=== PATIENT | male | born 1955 | race Caucasian/White ===

== ENCOUNTER 2018-05-17 05:26 | Inpatient (IN) | payer OTHER ==
[2018-05-17] MEDS: VANCOMYCIN 1 GM 250 ML IVPB (06:04)
[2018-05-17] MEDS: LACTATED RINGER'S 1,000 ML IV* (06:04)
[2018-05-17] MEDS ORDERED: GELATIN SIZE 100 SPONGE (06:39)
[2018-05-17] MEDS ORDERED: THROMBIN 5000 UNIT VIAL ×2 (06:40→07:57)
[2018-05-17] MEDS ORDERED: CA CHLORIDE 10% 10 ML SYRINGE (06:40)
[2018-05-17] MEDS ORDERED: CEFAZOLIN 1 GM INJ (06:44)
[2018-05-17] MEDS ORDERED: SODIUM CL BACTERIOSTATIC 30 ML INJ (06:44)
[2018-05-17] MEDS ORDERED: SURGIFOAM POWDER 1 GM KIT ×4 (06:55→14:26)
[2018-05-17] MEDS ORDERED: D5W-0.45 NACL + KCL 20 MEQ 1,000 ML IV (06:58)
[2018-05-17] MEDS ORDERED: METOCLOPRAMIDE 10 MG INJ (06:58)
[2018-05-17] MEDS ORDERED: PROPOFOL 20 ML (06:58)
[2018-05-17] MEDS ORDERED: MIDAZOLAM 1 MG/ML 2 ML INJ (06:58)
[2018-05-17] MEDS ORDERED: BISACODYL 10 MG SUPP PR (07:00)
[2018-05-17] MEDS ORDERED: ONDANSETRON 4 MG INJ IV (07:00)
[2018-05-17] MEDS ORDERED: NALOXONE (0.4 MG/ML) INJ IV (07:00)
[2018-05-17] MEDS ORDERED: CARISOPRODOL 350 MG TAB PO (07:00)
[2018-05-17] MEDS ORDERED: CEPASTAT LOZENGE MT (07:00)
[2018-05-17] MEDS ORDERED: ACETAMINOPHEN 325 MG TAB PO (07:00)
[2018-05-17] MEDS ORDERED: ALBUMIN HUMAN 5% 250 ML INJ (07:00)
[2018-05-17] MEDS ORDERED: ZOLPIDEM 5 MG TAB PO (07:00)
[2018-05-17] MEDS ORDERED: DIPHENHYDRAMINE 50 MG INJ IV (07:00)
[2018-05-17] MEDS ORDERED: FENTAnyl 50 MCG/ML VIAL (07:04)
[2018-05-17] MEDS ORDERED: ACETAMINOPHEN 1000MG/100ML IV 200 ML (08:00)
[2018-05-17] MEDS ORDERED: EPHEDrine SULFATE 50 MG/5 ML SYG ×4 (08:00→13:47)
[2018-05-17] MEDS: BUPIVACAINE 0.25%/EPI (SDV) 30 ML INJ (08:16)
[2018-05-17] MEDS: DOCUSATE SODIUM 100 MG CAP PO ×2 (09:00→21:02)
[2018-05-17] MEDS ORDERED: PHENYLephrine (100 MCG/ML) 5ML SYG (09:09)
[2018-05-17] MEDS ORDERED: PHENYLephrine 10 MG INJ (09:19)
[2018-05-17] MEDS: CA CHLORIDE 10% 10 ML SYRINGE (09:23)
[2018-05-17] MEDS: THROMBIN 5000 UNIT VIAL ×5 (09:23→14:32)
[2018-05-17] MEDS: HEPARIN 1000 UNITS/ML 10 ML INJ (09:28)
[2018-05-17] MEDS: POLYMYXIN/BACITRACIN 1L IRRIG (09:31)
[2018-05-17] MEDS ORDERED: ROCURONIUM 50 MG INJ ×2 (13:00→13:47)
[2018-05-17] MEDS ORDERED: FUROSEMIDE 20 MG INJ (15:19)
[2018-05-17] MEDS ORDERED: BUPIVACAINE 0.25% (MPF) 30 ML INJ (15:31)
[2018-05-17] MEDS ORDERED: ACETAMINOPHEN 1000MG/100ML IV 100 ML IVPB (16:00)
[2018-05-17] MEDS: FENTAnyl 50 MCG/ML VIAL (16:23)
[2018-05-17] MEDS: BUPIVACAINE 0.25% (MPF) 30 ML INJ (16:23)
[2018-05-17] MEDS ORDERED: ONDANSETRON 4 MG INJ (16:28)
[2018-05-17] MEDS: VANCOMYCIN 1 GM (PMX) 250 ML IVPB (17:43)
[2018-05-17] MEDS: LISINOPRIL 20 MG TAB PO (18:00)
[2018-05-17] MEDS: traMADol 50 MG TAB PO (18:16)
[2018-05-17] MEDS: SOD CHLORIDE 0.9% 1,000 ML IV (18:23)
[2018-05-17] MEDS: [UNRECOGNIZED DRUG - OTHER] XX (18:30)
[2018-05-17] MEDS ORDERED: GLUCOSE GEL 15 GRAM TUBE PO ×2 (18:30)
[2018-05-17] MEDS ORDERED: GLUCAGON 1 MG INJ IM (18:30)
[2018-05-17] MEDS ORDERED: GLUCOSE GEL 15 GRAM TUBE BUCCAL (18:30)
[2018-05-17] MEDS ORDERED: DEXTROSE 50% 50 ML SYRINGE IV ×2 (18:30)
[2018-05-17] MEDS: HYDROmorphONE 0.5 MG/0.5 ML SYG IV (19:52)
[2018-05-17] MEDS ORDERED: NON-FORMULARY/PATIENT OWN MED (Carvedilol* 6.25 MG) PO (21:00)
[2018-05-17] MEDS: QUETIAPINE 25 MG TAB PO (21:02)
[2018-05-17] MEDS: EZETIMIBE 10 MG TAB PO (21:03)
[2018-05-17] MEDS: HYDROmorphONE 0.2 MG/ML PCA IV (22:01)
[2018-05-18] MEDS: [UNRECOGNIZED DRUG - OTHER] XX ×3 (02:30→11:31)
[2018-05-18] MEDS: ACCU-CHEK XX (02:38)
[2018-05-18] MEDS: VANCOMYCIN 1 GM (PMX) 250 ML IVPB (05:34)
[2018-05-18] MEDS: PANTOPRAZOLE 40 MG INJ IV (05:34)
[2018-05-18 05:37] LABS: ADD MAN DIFF? NO
[2018-05-18 05:44] LABS: BASOPHILS % 0.3 % (0.0-2.0); EOSINOPHILS % 0.1 % (0.0-7.0); HEMATOCRIT 31.5 % (42.0-52.0); HEMOGLOBIN 10.3 g/dl (14.0-18.0); LYMPHOCYTES # 2.2 10^3/ul (0.8-2.9); LYMPHOCYTES % 19.5 % (15.0-51.0); MEAN CORPUSCULAR HEMOGLOBIN 27.8 pg (29.0-33.0); MEAN CORPUSCULAR HGB CONC 32.7 g/dl (32.0-37.0); MEAN CORPUSCULAR VOLUME 84.9 fl (82.0-101.0); MONOCYTE # 1.3 10^3/ul (0.3-0.9); MONOCYTES % 11.4 % (0.0-11.0); NEUTROPHIL # 7.6 10^3/ul (1.6-7.5); NEUTROPHILS % 68.3 % (39.0-77.0); PLATELET COUNT 157 10^3/UL (140-415); RED BLOOD COUNT 3.71 10^6/ul (4.70-6.10)
[2018-05-18 05:44] LABS: WHITE BLOOD COUNT 11.1 10^3/ul (4.8-10.8)
[2018-05-18 06:23] LABS: ANION GAP 11 (8-16); BLOOD UREA NITROGEN 27 mg/dl (7-20); CARBON DIOXIDE 22 mmol/L (21-31); CHLORIDE 104 mmol/L (97-110); GLUCOSE 164 mg/dl (70-220); POTASSIUM 4.7 mmol/L (3.5-5.1); SODIUM 132 mmol/L (135-144)
[2018-05-18] MEDS: SOD CHLORIDE 0.9% 1,000 ML IV ×2 (06:30→08:18)
[2018-05-18] MEDS: INSULIN ASPART [NOVOLOG] 3 ML PEN SC ×3 (08:08→17:25)
[2018-05-18] MEDS: DOCUSATE SODIUM 100 MG CAP PO ×2 (08:16→21:27)
[2018-05-18] MEDS: LISINOPRIL 20 MG TAB PO (08:17)
[2018-05-18] MEDS: VENLAFAXINE (XR) 75 MG CAP PO (08:27)
[2018-05-18] MEDS ORDERED: DISULFIRAM 250 MG PO (09:00)
[2018-05-18] MEDS ORDERED: PATIENT'S OWN MEDICATION PO (09:00)
[2018-05-18] MEDS: SOD CHLORIDE 0.9% 250 ML IV (10:50)
[2018-05-18] MEDS: EZETIMIBE 10 MG TAB PO (23:18)
[2018-05-18] MEDS: QUETIAPINE 25 MG TAB PO (23:20)
[2018-05-19] MEDS: SOD CHLORIDE 0.9% 1,000 ML IV (00:04)
[2018-05-19] MEDS: ACCU-CHEK XX (00:08)
[2018-05-19] MEDS: [UNRECOGNIZED DRUG - OTHER] XX ×3 (00:09→18:30)
[2018-05-19] MEDS: HYDROmorphONE 0.2 MG/ML PCA IV (00:40)
[2018-05-19] MEDS: PANTOPRAZOLE 40 MG INJ IV (05:11)
[2018-05-19 05:16] LABS: ADD MAN DIFF? NO
[2018-05-19 05:18] LABS: BASOPHILS % 0.4 % (0.0-2.0); EOSINOPHILS # 0.2 10^3/ul (0.0-0.5); EOSINOPHILS % 1.9 % (0.0-7.0); HEMATOCRIT 28.3 % (42.0-52.0); HEMOGLOBIN 9.3 g/dl (14.0-18.0); LYMPHOCYTES # 1.4 10^3/ul (0.8-2.9); LYMPHOCYTES % 14.8 % (15.0-51.0); MEAN CORPUSCULAR HEMOGLOBIN 28.3 pg (29.0-33.0); MEAN CORPUSCULAR HGB CONC 32.9 g/dl (32.0-37.0); MEAN PLATELET VOLUME 9.7 fl (7.4-10.4); MONOCYTE # 1.1 10^3/ul (0.3-0.9); MONOCYTES % 11.7 % (0.0-11.0); NEUTROPHIL # 6.8 10^3/ul (1.6-7.5); NEUTROPHILS % 70.8 % (39.0-77.0); PLATELET COUNT 125 10^3/UL (140-415); RED BLOOD COUNT 3.29 10^6/ul (4.70-6.10); RED CELL DISTRIBUTION WIDTH 14.1 % (11.5-14.5)
[2018-05-19 05:18] LABS: WHITE BLOOD COUNT 9.7 10^3/ul (4.8-10.8)
[2018-05-19 05:39] LABS: ANION GAP 10 (8-16); BLOOD UREA NITROGEN 20 mg/dl (7-20); CALCIUM 8.4 mg/dl (8.4-10.2); CARBON DIOXIDE 27 mmol/L (21-31); CHLORIDE 101 mmol/L (97-110); GLUCOSE 139 mg/dl (70-220); MAGNESIUM 2.1 mg/dl (1.7-2.5); POTASSIUM 4.7 mmol/L (3.5-5.1); SODIUM 133 mmol/L (135-144)
[2018-05-19] MEDS: INSULIN ASPART [NOVOLOG] 3 ML PEN SC ×3 (09:00→17:25)
[2018-05-19] MEDS: VENLAFAXINE (XR) 75 MG CAP PO (09:21)
[2018-05-19] MEDS: DOCUSATE SODIUM 100 MG CAP PO ×2 (09:22→20:23)
[2018-05-19] MEDS: LEVALBUTEROL (NEB) 0.63 MG/3 ML AMP HHN ×2 (11:21→15:26)
[2018-05-19] MEDS: GUAIFENESIN/DM (SR) TAB PO ×2 (11:27→20:23)
[2018-05-19] MEDS: EZETIMIBE 10 MG TAB PO (20:23)
[2018-05-19] MEDS: QUETIAPINE 25 MG TAB PO (23:19)
[2018-05-20] MEDS: LEVALBUTEROL (NEB) 0.63 MG/3 ML AMP HHN ×4 (00:57→23:21)
[2018-05-20] MEDS: ACCU-CHEK XX (02:00)
[2018-05-20] MEDS: [UNRECOGNIZED DRUG - OTHER] XX ×3 (02:22→18:30)
[2018-05-20] MEDS: SOD CHLORIDE 0.9% 1,000 ML IV (04:21)
[2018-05-20 05:50] LABS: ADD MAN DIFF? NO
[2018-05-20 05:52] LABS: BASOPHILS % 0.3 % (0.0-2.0); EOSINOPHILS # 0.2 10^3/ul (0.0-0.5); EOSINOPHILS % 2.8 % (0.0-7.0); HEMATOCRIT 26.2 % (42.0-52.0); HEMOGLOBIN 8.6 g/dl (14.0-18.0); LYMPHOCYTES # 1.5 10^3/ul (0.8-2.9); LYMPHOCYTES % 19.2 % (15.0-51.0); MEAN CORPUSCULAR HEMOGLOBIN 28.5 pg (29.0-33.0); MEAN CORPUSCULAR HGB CONC 32.8 g/dl (32.0-37.0); MEAN CORPUSCULAR VOLUME 86.8 fl (82.0-101.0); MONOCYTE # 0.9 10^3/ul (0.3-0.9); MONOCYTES % 12.2 % (0.0-11.0); NEUTROPHIL # 4.9 10^3/ul (1.6-7.5); NEUTROPHILS % 65.1 % (39.0-77.0); PLATELET COUNT 126 10^3/UL (140-415); RED BLOOD COUNT 3.02 10^6/ul (4.70-6.10); RED CELL DISTRIBUTION WIDTH 13.8 % (11.5-14.5)
[2018-05-20 05:52] LABS: WHITE BLOOD COUNT 7.5 10^3/ul (4.8-10.8)
[2018-05-20] MEDS: AL HYDROX/MG HYDROX/SIMETH 30 ML CUP PO (06:19)
[2018-05-20 06:23] LABS: ANION GAP 9 (8-16); BLOOD UREA NITROGEN 17 mg/dl (7-20); CALCIUM 8.2 mg/dl (8.4-10.2); CARBON DIOXIDE 29 mmol/L (21-31); CHLORIDE 103 mmol/L (97-110); CREATININE 0.76 mg/dl (0.61-1.24); GLUCOSE 112 mg/dl (70-220); MAGNESIUM 1.9 mg/dl (1.7-2.5); POTASSIUM 4.7 mmol/L (3.5-5.1); SODIUM 136 mmol/L (135-144)
[2018-05-20] MEDS: PANTOPRAZOLE 40 MG INJ IV (06:32)
[2018-05-20] MEDS: INSULIN ASPART [NOVOLOG] 3 ML PEN SC ×3 (08:38→17:25)
[2018-05-20] MEDS: DOCUSATE SODIUM 100 MG CAP PO ×2 (08:39→20:40)
[2018-05-20] MEDS: traMADol 50 MG TAB PO ×3 (08:40→18:13)
[2018-05-20] MEDS: GUAIFENESIN/DM (SR) TAB PO ×2 (08:40→20:40)
[2018-05-20] MEDS: VENLAFAXINE (XR) 75 MG CAP PO (08:40)
[2018-05-20] MEDS: EZETIMIBE 10 MG TAB PO (20:41)
[2018-05-20] MEDS: QUETIAPINE 25 MG TAB PO (20:41)
[2018-05-21] MEDS: ACCU-CHEK XX (01:28)
[2018-05-21] MEDS: [UNRECOGNIZED DRUG - OTHER] XX ×2 (02:30→10:30)
[2018-05-21 05:17] LABS: ADD MAN DIFF? NO
[2018-05-21 05:18] LABS: WHITE BLOOD COUNT 6.9 10^3/ul (4.8-10.8)
[2018-05-21 05:18] LABS: BASOPHILS % 0.4 % (0.0-2.0); EOSINOPHILS # 0.2 10^3/ul (0.0-0.5); EOSINOPHILS % 2.7 % (0.0-7.0); HEMATOCRIT 25.2 % (42.0-52.0); HEMOGLOBIN 8.2 g/dl (14.0-18.0); LYMPHOCYTES # 1.4 10^3/ul (0.8-2.9); LYMPHOCYTES % 19.5 % (15.0-51.0); MEAN CORPUSCULAR HEMOGLOBIN 28.4 pg (29.0-33.0); MEAN CORPUSCULAR HGB CONC 32.5 g/dl (32.0-37.0); MEAN CORPUSCULAR VOLUME 87.2 fl (82.0-101.0); MEAN PLATELET VOLUME 9.6 fl (7.4-10.4); MONOCYTE # 0.9 10^3/ul (0.3-0.9); MONOCYTES % 12.9 % (0.0-11.0); NEUTROPHIL # 4.4 10^3/ul (1.6-7.5); NEUTROPHILS % 63.9 % (39.0-77.0); PLATELET COUNT 153 10^3/UL (140-415); RED BLOOD COUNT 2.89 10^6/ul (4.70-6.10); RED CELL DISTRIBUTION WIDTH 13.8 % (11.5-14.5)
[2018-05-21 05:38] LABS: ANION GAP 11 (8-16); BLOOD UREA NITROGEN 14 mg/dl (7-20); CALCIUM 8.5 mg/dl (8.4-10.2); CARBON DIOXIDE 30 mmol/L (21-31); CHLORIDE 98 mmol/L (97-110); CREATININE 0.78 mg/dl (0.61-1.24); GLUCOSE 108 mg/dl (70-220); POTASSIUM 4.8 mmol/L (3.5-5.1); SODIUM 134 mmol/L (135-144)
[2018-05-21 05:43] LABS: IRON 23 ug/dl (35-150)
[2018-05-21] MEDS: PANTOPRAZOLE 40 MG INJ IV (05:51)
[2018-05-21 05:52] LABS: % IRON SATURATION 8 % SAT (22-52); TOTAL IRON BINDING CAPACITY 275 ug/dl (241-421)
[2018-05-21] MEDS: INSULIN ASPART [NOVOLOG] 3 ML PEN SC ×2 (07:20→11:10)
[2018-05-21] MEDS: traMADol 50 MG TAB PO ×2 (07:36→13:51)
[2018-05-21] MEDS: LEVALBUTEROL (NEB) 0.63 MG/3 ML AMP HHN (08:10)
[2018-05-21] MEDS: GUAIFENESIN/DM (SR) TAB PO (08:41)
[2018-05-21] MEDS: VENLAFAXINE (XR) 75 MG CAP PO (08:41)
[2018-05-21] MEDS: DOCUSATE SODIUM 100 MG CAP PO (08:41)
== END 2018-05-21 15:00 | disposition home or self-care (01) | DRG 454 ==
LOC: REC 05:26 → MS1 05-18 13:34 → ICU 17:12
PROVIDERS: Specialist
PROC: 0SG10AJ Fusion of 2 or more Lumbar Vertebral Joints with Interbody Fusion Device, Posterior Approach, Anterior Column, Open Approach (ICD-10-PCS; principal; 2018-05-17 07:00)
PROC: 0SG1071 Fusion of 2 or more Lumbar Vertebral Joints with Autologous Tissue Substitute, Posterior Approach, Posterior Column, Open Approach (ICD-10-PCS; 2018-05-17 07:00)
PROC: 00NY0ZZ Release Lumbar Spinal Cord, Open Approach (ICD-10-PCS; 2018-05-17 07:00)
PROC: 01NB0ZZ Release Lumbar Nerve, Open Approach (ICD-10-PCS; 2018-05-17 07:00)
PROC: 0ST20ZZ Resection of Lumbar Vertebral Disc, Open Approach (ICD-10-PCS; 2018-05-17 07:00)
PROC: 8E0WXBF Computer Assisted Procedure of Trunk Region, With Fluoroscopy (ICD-10-PCS; 2018-05-17 07:00)
PROC: 4A11X4G Monitoring of Peripheral Nervous Electrical Activity, Intraoperative, External Approach (ICD-10-PCS; 2018-05-17 07:00)
PROC: 07DR3ZZ Extraction of Iliac Bone Marrow, Percutaneous Approach (ICD-10-PCS; 2018-05-17 07:00)
PROC: 30233H0 Transfusion of Autologous Whole Blood into Peripheral Vein, Percutaneous Approach (ICD-10-PCS; 2018-05-17 07:00)
DX: M51.16 Intervertebral disc disorders with radiculopathy, lumbar region (principal); E87.1 Hypo-osmolality and hyponatremia; D62 Acute posthemorrhagic anemia; D69.6 Thrombocytopenia, unspecified; M48.062 Spinal stenosis, lumbar region with neurogenic claudication; M53.2X6 Spinal instabilities, lumbar region; M43.16 Spondylolisthesis, lumbar region; M21.372 Foot drop, left foot; E78.5 Hyperlipidemia, unspecified; E11.9 Type 2 diabetes mellitus without complications; I10 Essential (primary) hypertension; I25.10 Atherosclerotic heart disease of native coronary artery without angina pectoris; I25.2 Old myocardial infarction; Z95.5 Presence of coronary angioplasty implant and graft; Z87.891 Personal history of nicotine dependence
CPT/HCPCS: 72052; 80048; 82728; 82962; 83540; 83735; 85025; 86850; 86900; 86901; 86999; 87081; 94640; 94664; 97110; 97116; 97161; 97530